=== PATIENT | male | born 1980 | race Hispanic/Latino ===

== ENCOUNTER 2016-10-01 19:58 | Emergency (ER) | payer SELFPAY ==
[2016-10-01 19:58] VITALS: BMI 21.8
[2016-10-01 20:15] VITALS: BP 114/68; PULSE 115; TEMP 97.6
[2016-10-01 21:16] VITALS: O2SAT 96
[2016-10-01] MEDS ORDERED: Albuterol-Ipratrop 3 mg / 0.5 (3 ml) UD INH STA (21:29)
[2016-10-01 21:42] VITALS: RESP 18
[2016-10-01] MEDS ORDERED: Albuterol-Ipratrop 3 mg / 0.5 (3 ml) UD ONE (21:42)
== END 2016-10-01 21:43 | disposition left against medical advice (07) ==
LOC: C.ER 19:58
DX: R06.02 Shortness of breath (principal); Z02.9 Encounter for administrative examinations, unspecified

== ENCOUNTER 2017-07-08 17:53 | Inpatient (IN) | payer MEDICAID ==
[2017-07-08 17:53] VITALS: BMI 21.8
--- NOTE | 2017-07-08 18:40 | C.PDOC ---
History Of Present Illness <DiegogalileaserjioIva - Last Filed: 07/08/17 22:41> <Christina Louis - Last Filed: 07/08/17 23:57> 36 y/o male with history of ETOH and Heroin abuse here today for clearance to the detox center. He last used 9 hours PTO, and denies IV use. Patient has been to detox in the past and denies any history of seizure. (Iva Banuelos) History Per: Patient History/Exam Limitations: no limitations Suicide/Self Injury Attempted (Context): None Modifying Factor(s): Alcohol, Other (Heroin) Severity: Mild Involuntary Hold By: None Recent travel outside of the [place]: No Additional History Per: Patient <DiegogalileaserjioIva - Last Filed: 07/08/17 22:41> <Christina Louis - Last Filed: 07/08/17 23:57> Time Seen by Provider: 07/08/17 18:25 Chief Complaint (Nursing): Substance Abuse Past Medical History - Medical History PMH: Asthma, Bronchitis, HTN (non compliant with meds), Pneumonia Denies: Chronic Kidney Disease Family History: States: Unknown Family Hx - Social History Hx Tobacco Use: Yes Hx Alcohol Use: Yes Hx Substance Use: Yes (LAST USE 0900) - Immunization History Hx Tetanus Toxoid Vaccination: No Hx Influenza Vaccination: No Hx Pneumococcal Vaccination: No <DiegoperryIva - Last Filed: 07/08/17 22:41> Vital Signs: Last Vital Signs Temp 97.5 F L 07/08/17 22:01 Pulse 88 07/08/17 22:01 Resp 18 07/08/17 22:01 BP 119/71 07/08/17 22:01 Pulse Ox 96 07/08/17 22:43 - [facility] Procedures DETOXIFICATION SERVICES FOR SUBSTANCE ABUSE TREATMENT (09/15/16) Review Of Systems Except As Marked, All Systems Reviewed And Found Negative. <DiegoIva amador - Last Filed: 07/08/17 22:41> Physical Exam - Physical Exam Appears: Well, Non-toxic, No Acute Distress Skin: Normal Color, Warm, Dry Head: Atraumatic, Normacephalic Eye(s): bilateral: Normal Inspection, EOMI Nose: Normal Oral Mucosa: Moist Neck: Normal, Normal ROM, Supple Chest: Symmetrical Cardiovascular: Rhythm Regular Respiratory: Normal Breath Sounds, No Stridor, No Wheezing Gastrointestinal/Abdominal: Normal Exam, Soft, No Tenderness Back: Normal Inspection Extremity: Normal ROM Neurological/Psych: Oriented x3, Normal Speech <Iva Banuelos - Last Filed: 07/08/17 22:41> ED Course And Treatment - Laboratory Results Result Diagrams: 07/08/17 18:58 07/08/17 18:58 O2 Sat by Pulse Oximetry: 96 Progress Note: Pt ate a dinner tray. Pt notes "Im starting to feel bad". Librium ordered. Dr Louis took over care at 11pm pending re-evaluation and disposition. <Iva Banuelos - Last Filed: 07/08/17 22:41> - Laboratory Results Result Diagrams: 07/08/17 18:58 07/08/17 18:58 <Christina Louis E - Last Filed: 07/08/17 23:57> Medical Decision Making <Iva Banuelos - Last Filed: 07/08/17 22:41> <Christina Louis E - Last Filed: 07/08/17 23:57> Medical Decision Making: Plan: - Labs - UA Case discussed with oncology social work who discussed the case with commissions manager psychiatry who agreed upon admission. (Iva Banuelos) Disposition - Disposition Disposition Time: 23:00 <Iva Banuelos - Last Filed: 07/08/17 22:41> - Disposition Disposition Time: 23:56 <Christina Louis E - Last Filed: 07/08/17 23:57> - Disposition Disposition: HOSPITALIZED Condition: STABLE - Clinical Impression Clinical Impression: Alcohol dependence, Opioid dependence - Scribe Statement The provider has reviewed the documentation as recorded by the Scribe (anita stewart) <Iva Banuelos - Last Filed: 07/08/17 22:41> - PA / [employer] / Resident Statement MD/DO has reviewed & agrees with the documentation as recorded. <Christina Louis - Last Filed: 07/08/17 23:57> Decision To Admit <Iva Banuelos - Last Filed: 07/08/17 22:41> - Pt Status Changed To: Hospital Disposition Of: Inpatient - Admit Certification Admit to Inpatient:: After my assessment, the patient will require hospitalization for at least two midnights. This is because of the severity of symptoms shown, intensity of services needed, and/or the medical risk in this patient being treated as an outpatient. - InPatient: Physician Admission Certification: I certify that this patient requires 2 or more midnights of care for the following reason:: Detox. - . Bed Request Type: Detox Admitting Physician: Casimiro Peacock <Christina Louis - Last Filed: 07/08/17 23:57> - . Patient Diagnosis: Alcohol dependence, Opioid dependence
[2017-07-08 19:09] LABS: BASO # 0.1 K/uL (0.0-0.2); BASO % 0.7 % (0.0-2.0); EOS # 0.5 K/uL (0.0-0.7); EOS % 4.8 % (0.0-4.0); HEMOGLOBIN 14.9 g/dL (12.0-18.0); LYMPH # 2.2 K/uL (1.0-4.3); MEAN CORPUSCULAR HEMOGLOBIN 31.4 pg (27.0-31.0); MEAN CORPUSCULAR HGB CONC 34.1 g/dL (33.0-37.0); MEAN PLATELET VOLUME 6.6 fL (7.2-11.7); MONO # 0.9 K/uL (0.0-0.8); MONO % 8.9 % (0.0-10.0); NEUT # 6.4 K/uL (1.8-7.0); NEUT % 63.6 % (50.0-75.0); NRBC % 0.1 % (0.0-2.0); RBC 4.73 Mil/uL (4.40-5.90); RED CELL DISTRIBUTION WIDTH 14.1 % (11.5-14.5); WHITE BLOOD COUNT 10.1 K/uL (4.8-10.8)
[2017-07-08 19:10] LABS: MEAN CELL VOLUME 92.2 fL (80.0-94.0)
[2017-07-08 19:18] LABS: ALB/GLOB RATIO 1.3 (1.0-2.1); ALBUMIN 4.4 g/dL (3.5-5.0); ALT/SGPT 21 U/L (21-72); AST/SGOT 31 U/L (17-59); BLOOD UREA NITROGEN 17 mg/dL (9-20); CALCIUM 8.6 mg/dl (8.6-10.4); GFR AFRICAN-AMERICAN > 60; GFR NON-AFRICAN AMERICAN > 60
[2017-07-08 19:29] LABS: SQUAMOUS EPITHIAL < 1 /hpf (0-5); URINE BILIRUBIN NEGATIVE (NEGATIVE); URINE BLOOD 2+ (NEGATIVE); URINE CLARITY Clear (Clear); URINE COLOR Yellow (YELLOW); URINE GLUCOSE (UA) NORMAL (Normal); URINE LEUKOCYTE ESTERASE NEG Leu/uL (Negative); URINE NITRATE NEGATIVE (NEGATIVE); URINE PROTEIN NEGATIVE (NEGATIVE); URINE UROBILINOGEN NORMAL mg/dL (0.2-1.0)
[2017-07-08 19:36] LABS: BARBITURATES, UR NEGATIVE (NEGATIVE); BENZODIAZEPINES, UR NEGATIVE (NEGATIVE); OPIATES, UR POSITIVE (NEGATIVE); PHENCYCLIDINE, UR NEGATIVE (NEGATIVE)
[2017-07-09] MEDS ORDERED: Albuterol-Ipratrop 3 mg / 0.5 (3 ml) UD INH PRN (02:16)
--- NOTE | 2017-07-09 03:19 | PCM.BM ---
<Cindy Canales - Last Filed: 07/09/17 03:17> Treatment Plan Problems - Problems identified on initial assessmt Opiates Abuse Date Initiated: 07/09/17 Time Initiated: 02:00 Assessment reference: NA Status: Active Alcohol Abuse Date Initiated: 07/09/17 Time Initiated: 02:00 Assessment reference: NA Status: Active Treatment assets and liabiliti Patient Assests: ADL independent, negotiates basic needs Patient Liabilities: substance abuse (Opiates, Alcohol ), medical problems ( Asthma, Hypertension) - Milieu Protocol Maintain good personal hygiene: daily Encourage regular showers, daily Remind patient to perform daily oral care Maintain personal safety: every shift Educate patient to report safety concerns to staff, every shift Monitor environment for contraband/sharps Medication safety: Monitor for expected outcome, potential side effects: every shift, Assess barriers to learning: every shift, Assess readiness for medication education: every shift <Ashley Whitlock - Last Filed: 07/10/17 11:42> Family Contact Family involvement: Famliy/SO not involved Family contact: Patient declines to allow family contact at present - Goals for Treatment Patient goals for treatment: COMPLETE DETOX AND TRANSTION TO [facility] [place]. Discharge/Continuing Care - Education Needs Education Needs: Patient Medication, Patient Diagnosis/Disease Process, Patient Coping Skills, Patient Anger Management skills, Patient Placement options, Patient Community resources - Discharge Discharge Criteria: No longer exhibiting s/s of withdrawal, Reduction of target symptoms Discharge to:: Home, With Family - Treatment Team Participation Patient/Family/SO Statement: 07/10/17 11:43 "I HAVE TO GET BACK TO WORK BUT I'LL TRY THE [facility] SHOT..." Discussed with Family/SO: No Was Patient/Family/SO present at Treatment Team Meeting: Yes <Scarlett Wick - Last Filed: 07/10/17 20:25> - Diagnosis (1) Alcohol dependence Status: Acute Interventions: 07/10/17 20:25 * Assess 7x/week regarding severity of withdrawal * Educate regarding risks, benefits, side effects and alternatives of medications * Use Motivational Interviewing for abstinence * Use CBT for relapse prevention * Medication management for withdrawal symptoms * Encourage medication assisted treatment * (2) Opioid dependence Status: Acute Interventions: 07/10/17 20:25 * Assess 7x/week regarding severity of withdrawal * Educate regarding risks, benefits, side effects and alternatives of medications * Use Motivational Interviewing for abstinence * Use CBT for relapse prevention * Medication management for withdrawal symptoms * Encourage medication assisted treatment *
[2017-07-09] MEDS ORDERED: Buprenorphine Hydrochloride 2 mg SL ONE ×2 (06:31→07:50)
--- NOTE | 2017-07-09 15:16 | PCM.PSYCH ---
Initial Psychiatric Evaluation - Initial Psychiatric Evaluation Type of Admission: Voluntary Legal Status: Capacity Chief Complaint (in patient's own words): "Heroin" History of Present Illness and Precipitating Events: The patient is seen, chart reviewed and case discussed. 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 The patient is using 10-15 bags of intranasal heroin the last 2 years and sometimes painkillers. He also drinks alcohol 2-3 pints a day for the past 8 months. His first use for both substances was in his teens. His longest sobriety was 8 years. He used cocaine in the past intranasally but stopped 8 years ago. Denies marijuana and all other drugs. Smokes 2 packs per day cigarettes Denies using methadone or Suboxone in the past and he has never been to rehabilitation. He was in detox once in the past. Past psych history: Denies Family psych history: "Everybody." His father of heroin overdose and brother's use heroin. Medical history: Asthma Current Medications: Active Medications Generic Name Dose Route Start Last Admin Trade Name Freq PRN Reason Stop Dose Admin Albuterol/Ipratropium 3 ml 07/09/17 02:16 07/09/17 03:19 Duoneb 3 Mg/0.5 Mg (3 Ml) Ud INH 3 ml RQ6 PRN Administration Wheezing Chlordiazepoxide 25 mg 07/09/17 12:00 07/09/17 12:03 Librium PO 07/13/17 11:59 25 mg Q6 FARZANA Administration Taper Chlordiazepoxide 25 mg 07/09/17 10:39 Librium PO Q4H PRN Alcohol Withdrawal Clonidine HCl 0.1 mg 07/09/17 03:00 07/09/17 03:09 Catapres PO 0.1 mg Q8H PRN Administration Anxiety Guaifenesin 100 mg 07/09/17 10:40 Robitussin PO Q4H PRN Cough Ibuprofen 600 mg 07/09/17 02:58 07/09/17 03:09 Motrin Tab PO 600 mg TID PRN Administration Pain, moderate (4-7) Nicotine 1 patch 07/09/17 12:15 07/09/17 13:07 Nicoderm Cq TD 1 patch DAILY FARZANA Administration Quetiapine Fumarate 100 mg 07/09/17 22:00 Seroquel PO HS FARZANA Trazodone HCl 100 mg 07/09/17 22:00 Desyrel PO HS PRN Insomnia Past Psychiatric History - Past Psychiatric History Previous Treatment History: None Pertinent Medical Hx (Current Medical&Sleep Prob, Allergies): Allergies Allergy/AdvReac Type Severity Reaction Status Date / Time No Known Allergies Allergy Verified 07/08/17 18:19 No Known Home Med 09/15/16 Review of Systems - Neurological Neurological: UNREMARKABLE - Psychiatric Psychiatric: Abnormal Sleep Pattern, Anxiety. absent: Hallucinations, Homicidal Ideation, Suicidal Ideation Mental Status Examination - Personal Presentation Personal Presentation: Looks stated age - Affect Affect: Constricted - Motor Activity Motor Activity: Calm - Reliability in Providing Information Reliability in Providing Information: Good - Speech Speech: Organized - Mood Mood: Anxious - Formal Thought Process Formal Thought Process: No Impairment - Cognitive Functions Orientation: Person, Place, Situation, Time Sensorium: Alert Attention/Concentration: Attentive Estimate of Intelligence: Average Judgement: Intact, as evidence by: Insight regarding need for hospitalization Memory: Recent intact, as evidence by: Ability to recall events of the day, Remote intact, as evidenced by: Abilit to recall sig. life events - Risk Risk: Withdrawal, Diminished functioning - Strength & Assets Inventory Strength & Assets Inventory: Cooperative - Limitations Limitations: Other DSM 5 DX - DSM 5 DSM 5 Diagnosis: Opioid withdrawal Opioid use disorder, severe Alcohol withdrawal Alcohol use disorder, severe Cocaine use disorder, in remission - Recommended/Plan of Treatment Treatment Recommendations and Plan of Treatment: Subutex and Librium detox Gabapentin for augmentation Seroquel for sleep As needed medications Attend groups and activities Supportive therapy and psychoeducation PR for abstinence CBT for relapse prevention Encourage MAT Refer to rehab or IOP, and self-help groups Smoking cessation with PR Nicotine patch 34 min Projected ELOS: 5 days Prognosis: Good with treatment Discharge Plan and Discharge Criteria: No withdrawal symptoms Refer to rehabilitation or MAT - Smoking Cessation Smoking Cessation Initiated: Yes
[2017-07-09] MEDS: guaiFENesin 100 mg/5 ml Syrup UD PO PRN (22:30)
[2017-07-10] MEDS: Buprenorphine Hydrochloride 2 mg SL SCH (09:56)
[2017-07-10] MEDS: guaiFENesin 100 mg/5 ml Syrup UD PO PRN (12:20)
--- NOTE | 2017-07-10 20:48 | PCM.PYCHPN ---
Psychiatric Progress Note - Psychiatric Progress Note Patient seen today, length of contact: 16 min Patient Chief Complaint: "Still not well" Problems Identified/Issues Discussed: The pt is seen, chart reviewed, case discussed with staff. The pt is compliant with medications and reports no side-effects. Symptoms are improving but needs more time to stabilize. After care discussed, support and psychoeducation given. Medication Change: Yes (detox changes daily) Medical Record Reviewed: Yes Mental Status Examination - Cognitive Function Orientation: Person, Place, Situation, Time Memory: Intact Attention: WNL Concentration: Poor Association: WNL Fund of Knowledge: WNL - Mood Mood: Anxious - Affect Affect: Constricted - Speech Speech: Appropriate - Formal Thought Process Formal Thought Process: No Impairment - Suicidal Ideation Suicidal Ideation: No - Homicidal Ideation Homicidal Ideation: No Goal/Treatment Plan - Goal/Treatment Plan Need for Continued Stay: Discharge may exacerbated symptoms, Severe functional impairment Progress Toward Problem(s) and Goals/Treatment Plan: Subutex and Librium detox Gabapentin for augmentation Seroquel for sleep As needed medications Attend groups and activities Supportive therapy and psychoeducation [place] for abstinence CBT for relapse prevention Encourage MAT Refer to rehab or IOP, and self-help groups Smoking cessation with [place] Nicotine patch
[2017-07-11] MEDS: Buprenorphine Hydrochloride 2 mg SL SCH (09:27)
--- NOTE | 2017-07-11 14:26 | PCM.PYCHPN ---
Psychiatric Progress Note - Psychiatric Progress Note Patient seen today, length of contact: 16 min Patient Chief Complaint: "I want to leave on Friday" Problems Identified/Issues Discussed: The pt is seen, chart reviewed, case discussed with staff. Support given, CBT and WI used briefly No new symptoms reported, improving slowly and needs more time No SEs from medications, risks discussed. After care discussed Medication Change: Yes (detox changes daily) Medical Record Reviewed: Yes Mental Status Examination - Cognitive Function Orientation: Person, Place, Situation, Time Memory: Intact Attention: WNL Concentration: Poor Association: WNL Fund of Knowledge: WNL - Mood Mood: Anxious - Affect Affect: Constricted - Speech Speech: Appropriate - Formal Thought Process Formal Thought Process: No Impairment - Suicidal Ideation Suicidal Ideation: No - Homicidal Ideation Homicidal Ideation: No Goal/Treatment Plan - Goal/Treatment Plan Need for Continued Stay: Discharge may exacerbated symptoms, Severe functional impairment Progress Toward Problem(s) and Goals/Treatment Plan: Subutex and Librium detox Gabapentin for augmentation Seroquel for sleep As needed medications Attend groups and activities Supportive therapy and psychoeducation [place] for abstinence CBT for relapse prevention Encourage MAT Refer to rehab or IOP, and self-help groups Smoking cessation with [place] Nicotine patch
[2017-07-12] MEDS: Buprenorphine Hydrochloride 2 mg SL SCH (09:17)
[2017-07-12 11:57] VITALS: RESP 18
--- NOTE | 2017-07-12 16:02 | PCM.PYCHPN ---
Psychiatric Progress Note - Psychiatric Progress Note Patient seen today, length of contact: 16 min Patient Chief Complaint: "I HAVE MUSCLE CRAMPS" Problems Identified/Issues Discussed: The pt is seen, chart reviewed, case discussed with staff. patient reported he had muscle cramps in his legs. The pt is compliant with medications and reports no side-effects. Symptoms are improving but needs more time to stabilize. After care discussed, support and psychoeducation given Medication Change: Yes (detox changes daily) Medical Record Reviewed: Yes Mental Status Examination - Cognitive Function Orientation: Person, Place, Situation, Time Memory: Intact Attention: WNL Concentration: WNL Association: WN Fund of Knowledge: [facility] Decription of patient's judgement and insights: good/good Addtional comments: he was calm and cooperative - Mood Mood: Anxious - Affect Affect: Constricted - Speech Speech: Appropriate - Formal Thought Process Formal Thought Process: No Impairment Psychotic Thoughts and Behaviors: denied - Suicidal Ideation Suicidal Ideation: No - Homicidal Ideation Homicidal Ideation: No Plan: denied Goal/Treatment Plan - Goal/Treatment Plan Need for Continued Stay: Discharge may exacerbated symptoms, Severe functional impairment Progress Toward Problem(s) and Goals/Treatment Plan: Subutex and Librium detox Increase Gabapentin for augmentation Seroquel for sleep As needed medications Attend groups and activities Supportive therapy and psychoeducation [place] for abstinence CBT for relapse prevention Encourage MAT Refer to rehab or IOP, and self-help groups Smoking cessation with [place] Nicotine patch Estimated Date of D/C: 07/13/17 - Smoking Cessation Smoking Cessation Initiated: Yes
[2017-07-13 09:00] VITALS: BP 130/78; PULSE 80; TEMP 98.2; O2SAT 99
[2017-07-13] MEDS: Buprenorphine Hydrochloride 2 mg SL SCH (09:43)
--- NOTE | 2017-07-13 09:56 | PCM.PYCHDC ---
Mental Status Examination - Mental Status Examination Orientation: Person, Place, Situation, Time Memory: Intact Mood: Depressed Affect: Broad Speech: Appropriate Attention: WNL Concentration: WNL Association: WNL Fund of Knowledge: WNL Formal Thought Process: No Impairment Description of patient's judgement and insight: good/good Psychotic Thoughts and Behaviors: denied Suicidal Ideation: No Current Homicidal Ideation?: No Plan: denied Discharge Summary - Discharge Note Reason for Hospitalization: The patient is seen, chart reviewed and case discussed. 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 The patient is using 10-15 bags of intranasal heroin the last 2 years and sometimes painkillers. He also drinks alcohol 2-3 pints a day for the past 8 months. His first use for both substances was in his teens. His longest sobriety was 8 years. He used cocaine in the past intranasally but stopped 8 years ago. Denies marijuana and all other drugs. Smokes 2 packs per day cigarettes Denies using methadone or Suboxone in the past and he has never been to rehabilitation. He was in detox once in the past. Past psych history: Denies Family psych history: "Everybody." His father of heroin overdose and brother's use heroin. Medical history: Asthma Consultations:: List each consultation separately and include: 1. Reason for request. 2. Findings. 3. Follow-up Summary of Hospital Course include:: 1. Description of specific treatment plan utilized for patients during their course of treatmen. 2. Summarize the time- course for resolution of acute symptoms and/or regressed behaviors. 3. Describe issues identified and worked on during hospitalization. 4. Describe medication utilized. 5. Describe medical problems identified and treated. 6. Reassessment of suicide risk Summary of Hospital Course: The pt was admitted and started on detox treatment with psychotherapy, support, psychoeducation and medications. DC and CBT techniques were used. The pt was compliant with the treatment. The pt attended groups and activities, as well as milieu therapy. All the risks and benefits of medications were discussed and the patient understood and agreed. The pt improved with the treatment. Pt appreciate the treatment and care which was provided to him. At the time of d/c pt denied any depressive symptoms, manic symptoms. He denied any SI, HI, intent or plan. Pt denied any perceptual disturbances. He had behavioral issues. Psychoeducation was provided to the pt to be compliant with the medication, treatment plan and f/u plan after the discharge. After care discussed with the patient. Time spend 25 minutes - Diagnosis (1) Opioid use disorder, severe, dependence Status: Resolved (2) Opioid withdrawal Status: Resolved (3) Alcohol use disorder, severe, dependence Status: Resolved (4) Alcohol withdrawal Status: Resolved - Final Diagnosis (DSM 5) Condition upon Discharge: STABLE DSM 5: opioid dependence, severe, with withdrawal symptoms Alcohol dependence, severe, with withdrawal symptoms Disposition: HOME/ ROUTINE Follow-up Treatment Plan: Subutex and Librium detox Increase Gabapentin for augmentation Seroquel for sleep As needed medications Attend groups and activities Supportive therapy and psychoeducation [place] for abstinence CBT for relapse prevention Encourage MAT Refer to rehab or IOP, and self-help groups Smoking cessation with [place] Nicotine patch Prescriptions/Medication Reconciliation: Albuterol/Ipratropium [Duoneb 3 mg/0.5 mg (3 ml) UD] 3 ml INH RQ6 PRN 15 Days # 1 neb PRN Reason: Wheezing Gabapentin [Neurontin] 200 mg PO TID 15 Days #45 cap Ibuprofen [Motrin Tab] 600 mg PO TID PRN 15 Days #45 tab PRN Reason: Pain, Moderate (4-7) traZODone [Desyrel] 100 mg PO HS PRN 15 Days #15 tab PRN Reason: Insomnia - Smoking Cessation Smoking Cessation Medication prescribed: Yes - Antipsychotic Medications Pt discharged on 2 or more routine antipsychotic medications: No
== END 2017-07-13 10:30 | disposition home or self-care (01) | DRG 745 ==
LOC: C.ER 17:53 → C.7D 23:57
PROVIDERS: ADMIT Psychiatry & Neurology Psychiatry; ATTEND Psychiatry & Neurology Psychiatry
PROC: HZ2ZZZZ Detoxification Services for Substance Abuse Treatment (ICD-10-PCS; principal; 2017-07-08)
PROC: HZ52ZZZ Individual Psychotherapy for Substance Abuse Treatment, Cognitive-Behavioral (ICD-10-PCS; 2017-07-08)
PROC: HZ42ZZZ Group Counseling for Substance Abuse Treatment, Cognitive-Behavioral (ICD-10-PCS; 2017-07-08)
PROC: HZ59ZZZ Individual Psychotherapy for Substance Abuse Treatment, Supportive (ICD-10-PCS; 2017-07-08)
PROC: HZ56ZZZ Individual Psychotherapy for Substance Abuse Treatment, Psychoeducation (ICD-10-PCS; 2017-07-08)
PROC: HZ46ZZZ Group Counseling for Substance Abuse Treatment, Psychoeducation (ICD-10-PCS; 2017-07-08)
DX: F11.23 Opioid dependence with withdrawal (principal); F10.230 Alcohol dependence with withdrawal, uncomplicated; Y90.7 Blood alcohol level of 200-239 mg/100 ml; F14.11 Cocaine abuse, in remission; F17.210 Nicotine dependence, cigarettes, uncomplicated; J45.909 Unspecified asthma, uncomplicated

== ENCOUNTER 2018-08-31 16:12 | Emergency (ER) | payer MEDICAID ==
[2018-08-31 16:12] VITALS: BMI 21.8
[2018-08-31 16:32] VITALS: BP 148/80; PULSE 86; RESP 18; TEMP 97.7; O2SAT 95
[2018-08-31] MEDS ORDERED: Silver Sulfadiazine 1% Cream (20 gm) ONE (17:16)
[2018-08-31] MEDS ORDERED: Tdap Vaccine 0.5 ml Vial (10-64 yrs) IM ONE ×2 (17:24→17:34)
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
== END 2018-08-31 17:41 | disposition home or self-care (01) ==
LOC: C.ER 16:12
DX: T23.272A Burn of second degree of left wrist, initial encounter (principal); X13.1XXA Other contact with steam and other hot vapors, initial encounter

== ENCOUNTER 2018-11-15 23:10 | Inpatient (IN) | payer MEDICAID, OTHER ==
[2018-11-15 23:11] VITALS: BMI 21.8
--- NOTE | 2018-11-15 23:29 | C.PDOC ---
History Of Present Illness 37 yr old male w/ hx of etoh and heroin abuse, Asthma, Bronchitis, HTN p/w request for detox from heroin and etoh. He notes last snorting (No IVDU) heroin around 0600 this morning, and last etoh use at 1930. He denies any current wi thdrawal symptoms. He denies any physical complaints. No SI / HI. No depression / anxiety or hallucinations. Time Seen by Provider: 11/15/18 23:20 Chief Complaint (Nursing): Substance Abuse Past Medical History Vital Signs: Last Vital Signs Temp 97.6 F 11/15/18 23:21 Pulse 95 H 11/15/18 23:21 Resp 17 11/15/18 23:21 BP 131/78 11/15/18 23:21 Pulse Ox 97 11/15/18 23:21 Primary Care Provider: FAMILY PROVIDER,NO - Medical History PMH: Asthma, Bronchitis, HTN (non compliant with meds), Pneumonia Denies: Diabetes, Hepatitis, HIV, Chronic Kidney Disease, Seizures, Sexually Transmitted Disease - [facility] Procedures DETOXIFICATION SERVICES FOR SUBSTANCE ABUSE TREATMENT (07/08/17) GROUP HOSIERY KNITTER FOR SUBSTANCE ABUSE TREATMENT, PSYCHOEDUCATION (07/08/17) GROUP HOSIERY KNITTER FOR SUBSTANCE ABUSE, COGNITIVE BEHAVIORAL (07/08/17) INDIV PSYCHOTHERAPY FOR SUBSTANCE ABUSE TREATMENT, SUPPORT (07/08/17) INDIV PSYCHOTHERAPY FOR SUBSTANCE ABUSE, COGNITIV BEHAVIORAL (07/08/17) INDIV PSYCHOTHERAPY FOR SUBSTANCE ABUSE, PSYCHOEDUCATION (07/08/17) Family History: States: Unknown Family Hx - Social History Hx Tobacco Use: Yes Hx Alcohol Use: Yes Hx Substance Use: Yes - Immunization History Hx Tetanus Toxoid Vaccination: No Hx Influenza Vaccination: No Hx Pneumococcal Vaccination: No Review Of Systems Constitutional: Negative for: Fever, Chills, Weakness Eyes: Negative for: Pain, Vision Change, Eyelid Inflammation, Redness ENT: Negative for: Nose Pain, Nose Congestion, Mouth Pain, Mouth Swelling, Throat Pain, Throat Swelling Cardiovascular: Negative for: Chest Pain, Orthopnea, Edema Respiratory: Negative for: Cough, Shortness of Breath Gastrointestinal: Negative for: Nausea, Vomiting, Abdominal Pain, Diarrhea, Constipation, Melena, Rectal Pain Genitourinary: Negative for: Dysuria, Frequency, Hematuria Musculoskeletal: Negative for: Neck Pain, Shoulder Pain, Arm Pain, Back Pain Skin: Negative for: Rash, Lesions, Jaundice Neurological: Negative for: Weakness, Numbness, Incoordination, Confusion Psych: Negative for: Anxiety, Depression, Psychosis, Suicidal ideation, Withdrawal Physical Exam - Physical Exam Appears: Well, Non-toxic, No Acute Distress Skin: Normal Color, Warm, Dry Head: Atraumatic, Normacephalic Eye(s): bilateral: Normal Inspection, PERRL, EOMI Nose: Normal Oral Mucosa: Moist Tongue: Normal Appearing Lips: Normal Appearing Throat: Normal Neck: Normal, Normal ROM, No Midline Cervical Tenderness, No Paracervical Tenderness, Supple, Other (no midline pain) Cardiovascular: Rhythm Regular Respiratory: Normal Breath Sounds, No Stridor, No Wheezing Gastrointestinal/Abdominal: Normal Exam, Soft, No Tenderness, No Distention, No Guarding Back: Normal Inspection, No CVA Tenderness, No Vertebral Tenderness Extremity: Normal ROM Extremity: Bilateral: Atraumatic Neurological/Psych: Oriented x3, Normal Speech, Normal Cognition Gait: Steady ED Course And Treatment - Laboratory Results Result Diagrams: 11/15/18 23:39 11/15/18 23:39 O2 Sat by Pulse Oximetry: 97 Medical Decision Making Medical Decision Makin yr old M w/ hx of etoh and heroin abuse, Asthma, Bronchitis, HTN p/w request for detox from heroin and etoh. No signs of withdrawal on exam. No injection sites noted. Physical exam unremarkable pending crisis eval EK, nsr, no stemi 0153 labs reviewed, largely unremarkable medically clear: endorsed hematuria to pt and need to f/u outpt, he is agreeable per finish repair worker: matheus- to obs to Dr. rivas service no signs of withdrawal, strong steady gait, pt in NAD Disposition - Disposition Disposition Time: 01:53 Condition: STABLE - Clinical Impression Clinical Impression: Desire for detoxification, Alcohol abuse, Hematuria
[2018-11-15 23:42] LABS: BASO # 0.1 K/uL (0.0-0.2); BASO % 0.8 % (0.0-2.0); EOS # 0.4 K/uL (0.0-0.7); EOS % 4.7 % (0.0-4.0); HEMOGLOBIN 14.1 g/dL (12.0-18.0); LYMPH # 2.8 K/uL (1.0-4.3); LYMPH % 29.7 % (20.0-40.0); MEAN CORPUSCULAR HEMOGLOBIN 30.8 pg (27.0-31.0); MEAN CORPUSCULAR HGB CONC 33.9 g/dL (33.0-37.0); MEAN PLATELET VOLUME 6.7 fL (7.2-11.7); MONO # 0.9 K/uL (0.0-0.8); MONO % 9.2 % (0.0-10.0); NEUT # 5.2 K/uL (1.8-7.0); NEUT % 55.6 % (50.0-75.0); NRBC % 0.1 % (0.0-2.0); RBC 4.58 Mil/uL (4.40-5.90); RED CELL DISTRIBUTION WIDTH 13.9 % (11.5-14.5); WHITE BLOOD COUNT 9.4 K/uL (4.8-10.8)
[2018-11-15 23:55] LABS: ACETAMINOPHEN < 10.0 ug/mL (10.0-30.0); ALB/GLOB RATIO 1.4 (1.0-2.1); ALBUMIN 4.4 g/dL (3.5-5.0); ALT/SGPT 14 U/L (21-72); AST/SGOT 26 U/L (17-59); BLOOD UREA NITROGEN 17 mg/dL (9-20); CALCIUM 9.7 mg/dl (8.6-10.4); GFR NON-AFRICAN AMERICAN > 60; SALICYLATE < 1.0 {null, mg/dL 1}
[2018-11-16 01:16] LABS: URINE BILIRUBIN NEGATIVE (NEGATIVE); URINE BLOOD 2+ (NEGATIVE); URINE CLARITY Clear (Clear); URINE COLOR Yellow (YELLOW); URINE GLUCOSE (UA) NORMAL (Normal); URINE LEUKOCYTE ESTERASE NEG Leu/uL (Negative); URINE PROTEIN NEGATIVE (NEGATIVE); URINE UROBILINOGEN NORMAL mg/dL (0.2-1.0)
[2018-11-16 02:09] LABS: BARBITURATES, UR NEGATIVE (NEGATIVE); BENZODIAZEPINES, UR NEGATIVE (NEGATIVE); PHENCYCLIDINE, UR NEGATIVE (NEGATIVE)
[2018-11-16 02:10] LABS: OPIATES, UR POSITIVE (NEGATIVE)
--- NOTE | 2018-11-16 06:00 | PCM.BM ---
<Michael Mancilla - Last Filed: 11/16/18 05:58> Treatment Plan Problems - Problems identified on initial assessmt DENIAL Date Initiated: 11/16/18 Time Initiated: 04:20 Assessment reference: NA Status: Active DEFENSIVE COPING Date Initiated: 11/16/18 Time Initiated: 04:20 Assessment reference: NA Status: Active Treatment assets and liabiliti Patient Assests: cooperative, self-reliant, ADL independent, negotiates basic needs Patient Liabilities: physical pain, financial problems, poor support system, substance abuse, medical problems - Milieu Protocol Maintain good personal hygiene: daily Encourage regular showers, daily Remind patient to perform daily oral care, daily Assist patient to perform ADL's Conduct patient checks and document Observation sheet: Q15 minutes Maintain personal safety: every shift Educate patient to report safety concerns to staff, every shift Monitor environment for contraband/sharps Medication safety: Monitor for expected outcome, potential side effects: every shift, Assess barriers to learning: every shift, Assess readiness for medication education: every shift <Scarlett Wick - Last Filed: 11/16/18 13:51> - Diagnosis (1) Alcohol dependence Status: Acute Interventions: 11/16/18 13:51 * Assess 7x/week regarding severity of withdrawal * Educate regarding risks, benefits, side effects and alternatives of medications * Use Motivational Interviewing for abstinence * Use CBT for relapse prevention * Medication management for withdrawal symptoms * Encourage medication assisted treatment * (2) Opioid dependence Status: Acute Interventions: 11/16/18 13:51 * Assess 7x/week regarding severity of withdrawal * Educate regarding risks, benefits, side effects and alternatives of medications * Use Motivational Interviewing for abstinence * Use CBT for relapse prevention * Medication management for withdrawal symptoms * Encourage medication assisted treatment *
--- NOTE | 2018-11-16 09:11 | RAD ---
Date of service: 11/16/2018 HISTORY: Detox/Psy COMPARISON: 09/15/2016 TECHNIQUE: 1 view obtained. FINDINGS: LUNGS: No focal infiltrate or effusion. Biapical pleural thickening with upper lobe granulomatous changes. PLEURA: No significant pleural effusion identified, no pneumothorax apparent. CARDIOVASCULAR: No aortic atherosclerotic calcification present. Normal cardiac size. No pulmonary vascular congestion. OSSEOUS STRUCTURES: No significant abnormalities. VISUALIZED UPPER ABDOMEN: Normal. OTHER FINDINGS: None. IMPRESSION: No active disease.
[2018-11-16 09:59] VITALS: O2SAT 96
[2018-11-16] MEDS ORDERED: Multiple Vitamins Tab PO SCH (10:00)
[2018-11-16] MEDS ORDERED: Aluminum Hydroxide/Magnesium Hydroxide Susp (30 mL) PO PRN (10:07)
--- NOTE | 2018-11-16 10:07 | PCM.PSYCH ---
Initial Psychiatric Evaluation - Initial Psychiatric Evaluation Type of Admission: Voluntary Legal Status: Capacity Chief Complaint (in patient's own words): "I need detox" History of Present Illness and Precipitating Events: He is switched form OBS status to INPAT status because of significant wdw sxs and needing inpatient level of care. The patient is seen, chart reviewed and case discussed. This is a 37-year-old male, single but has a common-law of 17 years and has 4 stepchildren, lives with his . Unemployed. He is known from previous admission in 2018. The patient is using 20-25 bags of intranasal heroin the last 2 years and sometimes painkillers. last year it was 10-15. He also drinks alcohol 2-3 pints a day for the past 12 months. His first use for both substances was in his teens. His longest sobriety was 8-9 years. He used cocaine in the past intranasally but stopped 8 years ago. Denies marijuana and all other drugs. Smokes 1-2 packs per day cigarettes Denies using methadone or Suboxone in the past and he has never been to rehabilitation. He is against it He was in detox 2x in the past. No OD or seizures but had significant wdw sxs. Past psych history: Denies past hx but now feels depressed and anxious. No SI. Family psych history: "Everybody." His father of heroin overdose and brother's use heroin. Medical history: Asthma Current Medications: Active Medications Generic Name Dose Route Start Last Admin Trade Name Freq PRN Reason Stop Dose Admin Chlordiazepoxide 25 mg 11/16/18 04:33 11/16/18 05:05 Librium PO 25 mg Q6 PRN Administration Symptoms of alcohol withdrawl Chlordiazepoxide 0 mg 11/16/18 10:00 Librium PO 11/21/18 09:59 Q6 FARZANA Taper Chlordiazepoxide 25 mg 11/16/18 09:55 Librium PO Q4H PRN Alcohol Withdrawal Clonidine HCl 0.1 mg 11/16/18 09:55 Catapres PO Q4H PRN Symptoms of alcohol withdrawl Folic Acid 1 mg 11/16/18 10:00 Folic Acid PO DAILY FARZAAN Multivitamins 1 tab 11/16/18 10:00 Hexavitamin PO DAILY [facility] Pneumococcal Polyvalent Vaccine 0.5 ml 11/17/18 10:00 Pneumovax 23 Vaccine IM 11/17/18 10:01 .ONCE ONE Thiamine HCl 100 mg 11/16/18 10:00 Vitamin B1 Tab PO DAILY FARZANA Past Psychiatric History - Past Psychiatric History Previous Treatment History: None Pertinent Medical Hx (Current Medical&Sleep Prob, Allergies): Allergies Allergy/AdvReac Type Severity Reaction Status Date / Time No Known Allergies Allergy Verified 07/08/17 18:19 Ibuprofen [Motrin] 600 mg PO Q6 PRN #20 tab 08/31/18 Review of Systems - Psychiatric Psychiatric: Abnormal Sleep Pattern, Anhedonia, Anxiety, Change in Appetite, Depression, Difficulty Concentrating. absent: Hallucinations, Homicidal Ideation, Suicidal Ideation Mental Status Examination - Personal Presentation Personal Presentation: Looks stated age - Affect Affect: Constricted - Motor Activity Motor Activity: Calm - Reliability in Providing Information Reliability in Providing Information: Good - Speech Speech: Organized - Mood Mood: Depressed, Anxious - Formal Thought Process Formal Thought Process: No Impairment - Cognitive Functions Orientation: Person, Place, Situation, Time Sensorium: Alert Attention/Concentration: Attentive Estimate of Intelligence: Average Judgement: Intact, as evidence by: Insight regarding need for hospitalization Memory: Recent intact, as evidence by: Ability to recall events of the day, Re mote intact, as evidenced by: Abilit to recall sig. life events - Risk Risk: Withdrawal, Diminished functioning - Strength & Assets Inventory Strength & Assets Inventory: Cooperative - Limitations Limitations: Other DSM 5 DX - DSM 5 DSM 5 Diagnosis: Opioid withdrawal Opioid use d/o - severe Alcohol use d/o - severe Alcohol withdrawal Cocaine use disorder, in remission Depressive d/o - unspecified - Recommended/Plan of Treatment Treatment Recommendations and Plan of Treatment: Methadone and Librium detox for opioids and alcohol respectively Gabapentin for augmentation Remeron for depression and sleep As needed medications Attend groups and activities Supportive therapy and psychoeducation [place] for abstinence CBT for relapse prevention Encourage MAT - refusing b/c he was "able to stay clean for a long time" Refer to rehab or IOP, and self-help groups Smoking cessation with [place] Nicotine patch 34 min Projected ELOS: 4-5 days Prognosis: good Discharge Plan and Discharge Criteria: IOP - Smoking Cessation Smoking Cessation Initiated: Yes
[2018-11-16] MEDS: Benzocaine 10% Oral Anesthetic (12 ml) MM SCH ×3 (13:49→21:04)
[2018-11-16 16:17] VITALS: PULSE 95; RESP 18
[2018-11-16 19:39] VITALS: BP 108/76; TEMP 99
[2018-11-17] MEDS ORDERED: Pneumococcal 23-Valent Vaccine IM ONE (10:00)
--- NOTE | 2018-11-17 14:06 | PCM.PYCHDC ---
Mental Status Examination - Mental Status Examination Orientation: Person Discharge Summary - Discharge Note Consultations:: List each consultation separately and include: 1. Reason for request. 2. Findings. 3. Follow-up Summary of Hospital Course include:: 1. Description of specific treatment plan utilized for patients during their course of treatmen. 2. Summarize the time- course for resolution of acute symptoms and/or regressed behaviors. 3. Describe issues identified and worked on during hospitalization. 4. Describe medication utilized. 5. Describe medical problems identified and treated. 6. Reassessment of suicide risk Summary of Hospital Course: He is switched form OBS status to INPAT status because of significant wdw sxs and needing inpatient level of care. The patient is seen, chart reviewed and case discussed. This is a 37-year-old male, single but has a common-law of 17 years and has 4 stepchildren, lives with his . Unemployed. He is known from previous admission in 2018. The patient is using 20-25 bags of intranasal heroin the last 2 years and sometimes painkillers. last year it was 10-15. He also drinks alcohol 2-3 pints a day for the past 12 months. His first use for both substances was in his teens. His longest sobriety was 8-9 years. He used cocaine in the past intranasally but stopped 8 years ago. Denies marijuana and all other drugs. Smokes 1-2 packs per day cigarettes Denies using methadone or Suboxone in the past and he has never been to rehabilitation. He is against it He was in detox 2x in the past. No OD or seizures but had significant wdw sxs. Past psych history: Denies past hx but now feels depressed and anxious. No SI. Family psych history: "Everybody." His father of heroin overdose and brother's use heroin. Medical history: Asthma - Diagnosis (1) Alcohol dependence Status: Acute (2) Opioid dependence Status: Acute - Final Diagnosis (DSM 5) Condition upon Discharge: STABLE Disposition: AGAINST MEDICAL ADVICE Follow-up Treatment Plan: Methadone and Librium detox for opioids and alcohol respectively Gabapentin for augmentation Remeron for depression and sleep As needed medications Attend groups and activities Supportive therapy and psychoeducation [place] for abstinence CBT for relapse prevention Encourage MAT - refusing b/c he was "able to stay clean for a long time" Refer to rehab or IOP, and self-help groups Smoking cessation with [place] Nicotine patch 34 min
== END 2018-11-16 21:29 | disposition left against medical advice (07) | DRG 743 ==
LOC: C.ER 23:10 → C.7D 11-16 01:52 → OBSVTOIN 11-16 08:59
PROVIDERS: ADMIT Psychiatry & Neurology Psychiatry; ATTEND Psychiatry & Neurology Psychiatry
PROC: HZ2ZZZZ Detoxification Services for Substance Abuse Treatment (ICD-10-PCS; principal; 2018-11-16)
DX: F11.23 Opioid dependence with withdrawal (principal); F10.230 Alcohol dependence with withdrawal, uncomplicated; Y90.2 Blood alcohol level of 40-59 mg/100 ml; F14.11 Cocaine abuse, in remission; I10 Essential (primary) hypertension; J45.909 Unspecified asthma, uncomplicated; Z91.14 Patient's other noncompliance with medication regimen; F32.9 Major depressive disorder, single episode, unspecified; F17.210 Nicotine dependence, cigarettes, uncomplicated